=== PATIENT | male | born 1995 | race Caucasian/White ===

== ENCOUNTER 2017-07-23 12:02 | Emergency (ER) | payer OTHER ==
[2017-07-23 12:24] VITALS: BP 102/63; PULSE 65; RESP 16; TEMP 98.6; O2SAT 94
[2017-07-23] MEDS ORDERED: ONDANSETRON 4 MG/2 ML VIAL IVP ONE (16:03)
[2017-07-23] MEDS ORDERED: NS 1,000 ML IV ONE (16:03)
--- NOTE | 2017-07-23 16:31 | EDPHY ---
H & P Time Seen by Provider: 07/23/17 16:13 HPI/ROS: CHIEF COMPLAINT: Nausea, vomiting, diarrhea HISTORY OF PRESENT ILLNESS: 21-year-old male presents to the emergency department by private vehicle with multiple episodes of vomiting and diarrhea over last 3 days. He thought his symptoms were improving yesterday but then returned again today. He has had at least 6 episodes of diarrhea daily. He has had numerous episodes of vomiting. He has urinated very little. No fevers or chills. He thought that he may have had some food poisoning from [place] few days ago. No known ill contacts. No recent travel. No fevers or chills. No real abdominal pain. No back pain. No other URI symptoms. REVIEW OF SYSTEMS: Constitutional: No fever, no chills. Eyes: No double or blurry vision. ENT: No sore throat. Respiratory: No cough, no shortness of breath. Cardiac: No chest pain. Gastrointestinal: Vomiting, diarrhea Genitourinary: No dysuria. Musculoskeletal: No neck or back pain. Skin: No rashes. Neurological: No headache. Past Medical/Surgical History: Negative Social History: [employer] student Smoking Status: Never smoked Physical Exam: General Appearance: Alert, no distress. 102/63, afebrile. No apparent distress. Eyes: Pupils equal and round. Extraocular motions are all intact. ENT: Mouth: Mucous membranes dry. Respiratory: No wheezing, rhonchi, or rales, lungs are clear to auscultation. Cardiovascular: Regular rate and rhythm. Gastrointestinal: Abdomen is soft and nontender, no masses, no rebound or guarding, bowel sounds normal. Neurological: Alert and oriented x 3, cranial nerves II through XII grossly intact Skin: Warm and dry, no rashes. Musculoskeletal: Nontender to palpate along the cervical, thoracic or lumbar spine. Neck is supple. Extremities: Full range of motion and no peripheral edema. Psychiatric: Patient is oriented X 3, there is no agitation. Constitutional: Initial Vital Signs Temperature (C) 37 C 07/23/17 12:21 Heart Rate 65 07/23/17 12:21 Respiratory Rate 16 07/23/17 12:21 Blood Pressure 102/63 07/23/17 12:21 O2 Sat (%) 94 07/23/17 12:21 O2 Delivery Mode Room Air Allergies/Adverse Reactions: No Known Allergies Allergy (Unverified 07/23/17 12:21) Home Medications: Medication Instructions Recorded Doxycycline 100 mg Prepack#2 07/23/17 Medical Decision Making ED Course/Re-evaluation: 21-year-old male presents with multiple episodes of vomiting and diarrhea. Clinically he appears dehydrated. An IV has been established and he is receiving IV normal saline. He is also given IV Zofran. I do not think imaging studies are indicated. His abdomen is soft and nontender. Patient received IV normal saline. He received Zofran. He is feeling much better. He was tolerating p.o. Fluids. He was able to ambulate to the restroom on his own and urinate. I think he is safe for discharge. The patient feels comfortable being discharged home. Differential Diagnosis: Including but not limited to gastroenteritis, dehydration, electrolyte abnormality, acute appendicitis - Data Points Laboratory Results: Laboratory Results 07/23/17 16:07 07/23/17 16:07 07/23/17 07/23/17 16:07 16:07 WBC 6.85 10^3/uL 10^3/uL (3.80-9.50) RBC 5.67 10^6/uL 10^6/uL (4.40-6.38) Hgb 17.3 g/dL g/dL (13.7-17.5) Hct 49.5 % % (40.0-51.0) MCV 87.3 fL fL (81.5-99.8) MCH 30.5 pg pg (27.9-34.1) MCHC 34.9 g/dL g/dL (32.4-36.7) RDW 12.1 % % (11.5-15.2) Plt Count 315 10^3/uL 10^3/uL (150-400) MPV 9.4 fL fL (8.7-11.7) Neut % (Auto) 58.3 % % (39.3-74.2) Lymph % (Auto) 27.6 % % (15.0-45.0) [place] % (Auto) 12.0 % % (4.5-13.0) Eos % (Auto) 1.3 % % (0.6-7.6) Baso % (Auto) 0.4 % % (0.3-1.7) Nucleat RBC Rel Count 0.0 % % (0.0-0.2) Absolute Neuts (auto) 3.99 10^3/uL 10^3/uL (1.70-6.50) Absolute Lymphs (auto) 1.89 10^3/uL 10^3/uL (1.00-3.00) Absolute Monos (auto) 0.82 10^3/uL H 10^3/uL (0.30-0.80) Absolute Eos (auto) 0.09 10^3/uL 10^3/uL (0.03-0.40) Absolute Basos (auto) 0.03 10^3/uL 10^3/uL (0.02-0.10) Absolute Nucleated RBC 0.00 10^3/uL 10^3/uL (0-0.01) Immature Gran % 0.4 % % (0.0-1.1) Immature Gran # 0.03 10^3/uL 10^3/uL (0.00-0.10) Sodium 142 mEq/L mEq/L (135-145) Potassium 4.6 mEq/L mEq/L (3.5-5.2) Chloride 103 mEq/L mEq/L (97-110) Carbon Dioxide 25 mEq/l mEq/l (22-31) Anion Gap 14 mEq/L mEq/L (8-16) BUN 17 mg/dL mg/dL (7-23) Creatinine 0.8 mg/dL mg/dL (0.7-1.3) Estimated GFR > 60 Glucose 84 mg/dL mg/dL (70-100) Calcium 10.2 mg/dL mg/dL (8.5-10.4) Medications Given: Discontinued Medications Sodium Chloride (Ns) 1,000 mls @ 0 mls/hr IV ONCE ONE PRN Reason: Wide Open Stop: 07/23/17 16:04 Last Admin: 18 16:09 Dose: 1,000 mls Ondansetron HCl (Zofran) 4 mg IVP EDNOW ONE Stop: 07/23/17 16:04 Last Admin: 07/23/17 16:09 Dose: 4 mg Departure - Departure Disposition: Home, Routine, Self-Care Clinical Impression: Acute gastroenteritis Condition: Good Instructions: Gastroenteritis (ED) Additional Instructions: Clear liquids and slowly advance diet as tolerated. Abdominal Pain: Return to the Emergency Department immediately for increasing pain, fever, vomiting, or if not completely better in 8-12 hours. Referrals: Clarence Oneil [Doctor of Osteopathy] - As per Instructions (Primary care provider career consultant)
[2017-07-23 16:53] LABS: PLATELET COUNT 315 10^3/uL (150-400)
== END 2017-07-23 17:09 | disposition home or self-care (01) ==
DX: K52.9 Noninfective gastroenteritis and colitis, unspecified (principal)
CPT/HCPCS: 96374; J2405